=== PATIENT | female | born 1955 | race Caucasian/White ===

== ENCOUNTER 2017-10-03 11:01 | Emergency (ER) | payer OTHER ==
[~2017-10-03] VITALS: Ht 157.5 cm; Wt 69.9 kg
[2017-10-03] MEDS ORDERED: SYNTHROID88 MCG (11:25)
== END 2017-10-03 12:12 | disposition home or self-care (01) ==
LOC: ER 11:01
DX: L72.0 Epidermal cyst (principal); L02.212 Cutaneous abscess of back [any part, except buttock and flank]; B96.89 Other specified bacterial agents as the cause of diseases classified elsewhere